=== PATIENT | male | born 1975 | race Caucasian/White ===

== ENCOUNTER 2024-07-24 11:36 | Emergency (ER) | payer BC, SELFPAY ==
[2024-07-24 11:45] VITALS: BP 134/85
[2024-07-24] MEDS: NORCO 5/325 1 TABLET PO (12:34)
--- NOTE | 2024-07-24 16:04 | ED.MUSCINJ ---
HPI-Injury
General
Chief Complaint: Musculo-Skeletal Complaint
Source: patient
Exam Limitations: none
Time Seen by Provider: 07/24/24 12:06
Nursing documentation reviewed up to this point in time: agreed with
History of Present Illness-Injury
Is this injury a work related problem?: No
Is pt an associate of [facility]?: No
Initial Injury comments:
Injured clavicle while playing soccer. Complains of pain to left clavicle. Injury occurred just CREDIT VERIFICATION CLERK
Past History
Past History
ED Past Medical History: None
Review of Systems
Review of Systems
Allergies reviewed?: Yes
All Other Systems: ROS reviewed and negative except as documented in HPI and ROS
Constitutional: Reports no symptoms
Respiratory: Reports no symptoms
Musculoskeletal: Reports joint pain (Pain to left clavicle)
Skin: Reports no symptoms
Neurological: Reports no symptoms
Psychiatric: Reports no symptoms
Musculoskeletal Injury Exam
Musculoskeletal Injury Exam
Left Clavicle:
Pain with Movement?: Moderate
Tender to palpation?: Moderate
Soft tissue swelling?: Mild
External deformity and angulation?: None
Joint effusion?: None
Contusion?: Moderate
Hematoma-local bleeding into tissue?: None
Joint instability?: No
Malalignment/deformity?: No
Range of motion: Limited
Distal skin color and temperature: normal-warm & good color
Capillary Refill: normal
Normal distal neurovascular exam?: Yes
Phy Exam
General Physical Exam
General Presentation: well appearing and moderate distress
General age: appears stated age
General Mental: alert
Musculoskeletal Exam
Musculoskeletal Exam: neuro vasc intact
Skin Exam
Skin Exam: normal color and warm/dry
Psychiatric Exam
Psychiatric Exam: normal mood/affect
Injury Course
Orders/Labs/Results
Orders:
Orders
07/24/24 11:47
Clavicle, Left Complete CR [CR Clavicle - Left Complete ] Urgent
Comment:
Reason For Exam: pain
07/24/24 12:20
Shoulder Immobilizer Left- Tx ONCE
Hydrocodone 5/APAP 325 [[place] 5/325] 1 tablet PO NOW STA
*Radiology
Radiology exam reviewed: radiology read reviewed
*Pulse Oximetry
Patient hypoxic: no
*Critical Care Note
Total Time (30-74mins, 75-104mins- exclusive of procedures): Not Applicable
ED Attending Note
-
Portions of this chart may have been created with voice recognition software.� Occasional wrong word or��sound alike� substitutions may have occurred due to the inherent limitations of voice recognition software.
Discharge Plan
Departure
Patient Disposition: Home (Routine Discharge)
Date of Disposition: 07/24/24
Time of Disposition: 12:20
Patient with high blood pressure during this ER visit?: No
Condition: Good
Covid-19: Not Applicable
Discharge Problem:
Clavicle fracture
Instructions: Clavicle fracture, Ibuprofen, How to Use a Shoulder Sling, Using Cold for Pain
Prescriptions:
New
hydrocodone-acetaminophen 5-325 mg tablet
1 tab PO Q4H PRN (Reason: Pain) Qty: 12 0RF
Referrals:
NONE,* [Family Provider] -
Activity Restrictions/Additional Instructions:
Follow up with your orthopedic provider in the AM
Interventions
Interventions:
*Risk Screen - Suicide Last Done: 07/24/24 12:50
*General Assessment Last Done: 07/24/24 12:50
*Neglect/Abuse Screening Last Done: 07/24/24 12:50
ED- Fall Risk Assessment Last Done: 07/24/24 12:50
*ED COVID-19 Vaccine History Last Done: 07/24/24 12:50
*Nursing Disposition Last Done: 07/24/24 12:50
ED-Musculoskeletal Assessment Last Done: 07/24/24 12:50
Discharge Date and Time
Discharge Date/Time: 07/24/24 12:50
Print Language: ESTONIAN
== END 2024-07-24 12:50 | disposition home or self-care (01) ==
LOC: EMR 11:36
PROVIDERS: EMERGENCY PHYSICIAN Student in an Organized Health Care Education/Training Program
DX: S42.012A Anterior displaced fracture of sternal end of left clavicle, initial encounter for closed fracture (principal); W19.XXXA Unspecified fall, initial encounter; Y93.66 Activity, soccer
CPT/HCPCS: 99283; 73000